=== PATIENT | male | born 1965 | race Caucasian/White ===

== ENCOUNTER 2025-02-08 21:26 | Emergency (ER) | payer OTHER, SELFPAY ==
[2025-02-08 21:26] VITALS: PULSE 89
[2025-02-08 21:33] VITALS: BP 127/71; PULSE 88; PULSE 89; RESP 16; TEMP 36; O2SAT 97
--- NOTE | 2025-02-08 21:47 | ED_ITS ---
HPI - Syncope General Chief Complaint: Syncope Stated Complaint: syncope Time Seen by Provider: 02/08/25 21:46 Source: patient and EMS Mode of arrival: ambulatory Limitations: no limitations History of Present Illness HPI narrative: this is a 59-year-old male with history of MS that presents via EMS after he was playing a round of golf and had a few drinks had a syncopal episode where he felt faint and dehydrated he did not fall to the ground since a friend was there and helped him to the ground otherwise no seizure activity blood pressure was decreased and via EMS the patient receive lactated Ringer's and currently the patient is back to his baseline blood pressure 127/71 no headache no blurry vision no nausea vomiting no chest pain no shortness of breath no fever chills. complaint: loss of consciousness and felt faint Onset (ago): hour(s) -: second(s) Related Data Allergies Allergy/AdvReac Type Severity Reaction Status Date / Time No Known Allergies Allergy Verified 02/08/25 21:54 Review of Systems Review of Systems: All systems reviewed & are unremarkable except as noted in HPI and below PMFSH Past Medical History Medical History Stable multiple sclerosis Exam Const: General: healthy appearing, no acute distress and alert Nutritional Appearance: well nourished Orientation/consciousness: patient oriented x3 Limitations: no limitations HENMT: Head: normal to inspection Eyes: Conjunctivae: conjunctivae normal Pupils: Equal, round and reactive pupils present EOM: EOMs intact bilaterally Neck: Neck: normal visual inspection Chest: Chest palpation & inspection: normal inspection of the chest Resp: Effort & Inspection: normal respiratory effort Auscultation: clear to auscultation bilaterally Cardio: Rate: regular rate Rhythm: regular rhythm GI: GI Palp: Yes Soft to palpation Auscultation: normal bowel sounds : General: Yes bladder normal to palpation Back/Spine/Pelvis: Back: no CVA tenderness Skin: General skin exam: normal color Rashes: no rashes Wounds: no wounds Neuro: General: patient oriented x3, moves all extremities, no meningeal signs, no focal motor deficits and CN's II-XI intact bilaterally Speech: normal speech Gait exam (Neuro): Normal gait present Extrem: General: normal to inspection, no clubbing, cyanosis or edema and no pedal edema Course Course Emergency Course: patient back to his baseline received L of lactated Ringer's and current blood pressure 127/71 patient is afebrile with heart rate of 89 respiratory rate of 16 satting 97% on room air patient wants to go home feels great. Vital Signs Vital signs: Vital Signs Pulse Rate 89 02/08/25 21:26 Temperature 36.0 C L 02/08/25 21:33 Pulse Rate 86 02/08/25 22:16 Respiratory Rate 15 02/08/25 22:16 Blood Pressure 110/90 02/08/25 22:16 Pulse Oximetry 98 02/08/25 22:16 Oxygen Delivery Room Air 02/08/25 21:33 Discharge Plan Discharge Clinical Impression: Dehydration, Vasovagal syncope Patient Disposition: Home Condition: Stable Instructions: Antibiotic Form, Dehydration (ED), Syncope (ED) Additional Instructions: Advised to drink plenty of water and follow with primary care physician if symptoms persist or worsen. Patient Language: Lao Follow-up/Referrals: UNKNOWN,DOCTOR [Non-Staff] - Time of Disposition: :57
[2025-02-08 22:01] VITALS: BP 126/80; PULSE 87; RESP 12; O2SAT 92
--- OUTSIDE RECORDS SUMMARY | 2025-02-08 22:09 | XMS_ITS | Clinical Summary ---
Author Organization [facility] B Address [address] [place] [address] Care Team Providers Care Campaign Director Name Role Phone No, Physician Primary Care Provider [phone] Allergies No known active allergies Medications aspirin 81 mg tablet None Entered 07/03/2015 Active cholecalciferol (VITAMIN D-3) 5,000 unit capsule 1 capsule (5,000 Units total) Active DOCOSAHEXANOIC ACID/EPA (FISH OIL ORAL) Take by mouth. Active tamsulosin (FLOMAX) 0.4 mg extended release capsule Take 1 capsule (0.4 mg total) by mouth daily 07/01/2021 Active Aubagio 14 mg tabletIndication s:Multiple sclerosis (HCC) TAKE 1 TABLET BY MOUTH DAILY 30 tablet 5 08/25/2021 Active modafiniL (PROVIGIL) 200 mg tabletIndication s:Multiple sclerosis (HCC) Take 1 tablet (200 mg total) by mouth daily 90 tablet 1 10/23/2021 Active gabapentin (NEURONTIN) 600 mg tablet TAKE 2 TABLETS(1200 MG) BY MOUTH THREE TIMES DAILY 180 tablet 01/07/2022 Active metoprolol XL (TOPROL-XL) 25 mg extended release tabletIndication s:PVC's (premature ventricular contractions) Take 1 tablet (25 mg total) by mouth daily 90 tablet 3 10/05/2024 Active Active Problems Problem Noted Date Diagnosed Date PVC's (premature ventricular contractions) 08/25 Assessment & Plan (08/25/2021 12:55 PM FOURTH HAND): Asymptomatic, reassured that unless burden is excessive for signs of structural heart disease that no additional is needed. Will assess burden further with four Holter, assess LV function with echo. Further recommendations forthcoming. Vitamin D deficiency 07/09/2015 Multiple sclerosis 07/05/2015 Overview (12/15/2017): MULTIPLE SCLEROSIS DMT history Copaxone 2013 - 07/2016 new lesion Aubagio 07/2016 - Immunizations Immunization Administration Dates Next Due Influenza, Quadrivalent, Spl it, Preservative Free, Intramuscular 07/10/2021,09/04/2020,05/29/2019 Pfizer SARS-CoV-2 Monovalent Vaccination (12+ Yrs) PURPLE 01/03/2021,12/13/2020 Tdap 02/14/2014 ZOSTER Recombinant 08/10/2018,08/09/2018, 018 Surgical History Surgery Date Site/Laterality Comments KNEE ARTHROSCOPY Medical History Medical History Date Comments MS (multiple sclerosis) (HCC) Hx of gout Metabolic syndrome Vitamin D insufficiency Thyroid nodules Family History Medical History Relation Name Comments Alzheimer's disease Maternal Grandmother Dementia Maternal Grandmother Stroke Maternal Grandmother Neuropathy Mother Relation Name Status Comments Maternal Grandmother Mother Social History Tobacco Use Types Packs/Day Years Used Date Smoking Tobacco: Former Vaping Q uit: 09/25/2020 Smokeless Tobacco: Never Alcohol Use Standard Drinks/Week Comments Yes 0 (1 standard drink = 0.6 oz pur e alcohol) Personal Safety Answer Date Recorded Getting School Help Needed Not on file 09/20 Sex and Gender Information Value Date Recorded Sex Assigned at Not on file Legal Sex Male 9:39 AM CDT Gender Identity Not on file Sexual Orientation Not on file Obstetrics History Last Filed Vital Signs Vital Sign Reading Time Taken Comments Blood Pressure 116/72 09/22/2023 8:31 AM FOURTH HAND Pulse 81 09/22/2023 8:31 AM FOURTH HAND Temperature - - Respiratory Rate 16 09/04/2020 10:3 3 AM FOURTH HAND Oxygen Saturation 97% 09/22/2023 8:31 AM FOURTH HAND Inhaled Oxygen Concentration - - Weight 113.8 kg (250 lb 12.8 oz) 09/22/2023 8:31 AM FOURTH HAND Height 188 cm (6' 2) 09/22/2023 8:31 AM FOURTH HAND Body Mass Index 32.2 09/22/2023 8:31 AM FOURTH HAND Plan of Treatment Health Maintenance Due Date Last Done Comments Colon Cancer Screening-Colonoscopy 1964 Depression Screening 1964 Hepatitis C Screening 1964 Prostate Cancer Screening-PSA 1964 Hepatitis B Screening 1982 Regular Well Visit/Exam 18-64 1982 DTaP/Tdap/Td Vaccine (2 - Td or Tdap) 02/15/2024 02/14/2014 Covid-19 Vaccine (3 - 2023-2 5 season) 2024 01/03/2021, 12/13/2020 Influenza Vaccine (Season Ended) 2025 07/10/2021, 09/04/2020, 05/29/2019 Zoster Vaccine Completed 08/10/2018, 08/09/2018, 12/07/2017 Pneumococcal vaccine <65 Aged Out No longer eligible based on patient's age to complete this topic Insurance CHOICE PLUS [facility] CHOICE PLUS [facility] CHOICE PLUS Care Teams Campaign Director Relationship Specialty Start Date End Date No, Physician PCP - General 08/15/18
--- OUTSIDE RECORDS SUMMARY | 2025-02-08 22:09 | XMS_ITS | Clinical Summary ---
Author Organization [facility] Address [address] [place] [address] Care Team Providers Care Educational Resource Center Teacher Name Role Phone Unavailable Primary Care Provider Unavailabl e Allergies No known active allergies Medications omega 4-trv-bxy-fish oil (Fish OiL) 100-160-1,000 mg Capsule Take 2 Tablets by mouth daily. Active aspirin (ECOTRIN EC) 81 mg Tablet, Delayed Release (E.C.) Take 81 mg by mouth daily. Active cholecalciferol, Vitamin D3, 125 mcg (5,000 unit) Capsule Take 5,000 Units by mouth daily. Active [place]-3 Fatty Acids 1,000 mg Capsule Take 2 Capsules by mouth daily. Active naproxen sodium (ALEVE) 220 mg Capsule Take 4 Capsules by mouth daily. Active tamsulosin (FLOMAX) 0.4 mg capsule Take 0.4 mg by mouth daily. 1 Active valACYclovir (VALTREX) 1 gram tablet TAKE 2 TABLETS BY MOUTH THE NIGHT BEFORE PROCEDURE AND IN THE MORNING 2 Active metoprolol succinate (TOPROL XL) 25 mg Extended Release 24 hour tablet Take 25 mg by mouth daily. 3 Active gabapentin (NEURONTIN) 600 mg tabletIndication s:Neuropathy TAKE 2 TABLETS BY MOUTH 3 TIMES DAILY 540 Tablet 3 4 Active modafiniL (PROVIGIL) 200 mg TabletIndication s:Multiple sclerosis (CMS/HCC),Fatigu e, unspecified type Take 1 Tablet (200 mg) by mouth daily. 90 Tablet 5 Active teriflunomide (AUBAGIO) 14 mg tabletIndication s:Multiple sclerosis (CMS/HCC) Take 1 Tablet (14 mg) by mouth daily. 30 Tablet 5 5 Active teriflunomide (AUBAGIO) 14 mg tabletIndication s:Multiple sclerosis (CMS/HCC) Take 1 Tablet (14 mg) by mouth daily. 30 Tablet 5 5 Active Active Problems Patient Care Coordination No te Formatting of this note migh t be different from the original. DMT history Copaxone 2013 - 07/2016 new lesion Aubagio 07/2016 - Problem Noted Date Diagnosed Date Multiple sclerosis, relapsing-remitting 12/10/19 24 PVC's (premature ventricular contractions) 08/25 Overview (12/10/2023): Last Assessment & Plan: Asymptomatic, reassured that unless burden is excessive for signs of structural heart disease that no additional is needed. Will assess burden further with four Holter, assess LV function with echo. Further recommendations forthcoming. Mixed hyperlipidemia 06/03/2017 Overview (12/10/2023): Last Assessment & Plan: Currently on no cholesterol lowering medication. Recheck lipid panel, hepatic function, and CK. Sun-damaged skin 12/01/2016 Chronic nonalcoholic liver disease 04/21/2016 Gout 04/21/2016 Overview (12/10/2023): Last Assessment & Plan: Pt. Has not taken allopurinol in the past 3 months. Has not had flare in several years. Check uric acid level. Neuropathy 04/21/2016 Overview (12/10/2023): Last Assessment & Plan: Continue gabapentin 300 mg TID. Obesity, Class I, BMI 30-34.9 04/21/2016 Overview (12/10/2023): Last Assessment & Plan: Pt. Lost 10 lbs. In past 6 months. Exercise counseling given. Dietary surveillance and counseling given. Prediabetes 04/21/2016 Overview (12/10/2023): 5.9 on 11/30/16; 6.2 on 06/03/17 Last Assessment & Plan: A1C increased to 6.2. Restart Metformin XR 500 mg daily. Emphasized dietary changes. Primary osteoarthritis of both knees 04/21/2016 Thyroid nodule 04/21/2016 Overview (12/10/2023): Last Assessment & Plan: S/p normal FNA performed by Dr. Arambula. Metabolic syndrome 07/09/2015 Overview (12/10/2023): Date HEMOGLOBIN A1C 06/24/2011 6.8 percent 11/13/2011 6.1 percent 07/15/2012 6.0 percent 03/31/2013 5.1 % 02/14/2014 5.5 percent Results for orders placed or performed in visit on 07/09/15 HEMOGLOBIN A1C Result Value Ref Range GLYCO HEMOGLOBIN 5.7 (H) 4.0-5.6 % LIPID RISK PANEL Result Value Ref Range CHOLESTEROL 191 mg/dL TRIGLYCERIDES 99 mg/dL HDL CHOLESTEROL 42 mg/dL LDL CHOL (CALC) 129 mg/dL Non- HDL Cholesterol 149 mg/dL VITAMIN D 25-HYDROXY (CALCIFEROL) Result Value Ref Range VITAMIN D 25 HYDROXY 39.5 30.0-100.0 ng/mL CBC W/PLATELET Result Value Ref Range WHITE CELL COUNT 5.3 3.5-10.5 K/UL RED CELL COUNT 4.42 4.30-5.80 M/UL HEMOGLOBIN 14.0 13.0-17.5 g/dL HEMATOCRIT 40.1 38.0-50.0 % MCV 91 80-99 FL MCH 31.7 27.0-34.0 pg MCHC 34.9 32.0-35.5 % RDW 12.8 11.0-15.0 % PLATELET COUNT 282 140-390 K/UL COMPREHENSIVE CHEM PANEL Result Value Ref Range SODIUM 139 134-142 mEq/L POTASSIUM 4.0 3.5-5.1 mEq/L CHLORIDE 105 98-109 mEq/L BICARBONATE 29 21-31 mEq/L CALCIUM 9.4 8.3-10.5 mg/dL ALBUMIN 4.2 3.5-5.7 g/dL BLOOD UREA NITROGEN 12 2-25 mg/dL CREATININE 0.94 0.60-1.30 mg/dL GLUCOSE 103 (H) 65-100 mg/dL PROTEIN TOTAL 6.7 6.4-8.9 g/dL ALT (SGPT) 16 0-52 Unit/L ALKALINE PHOSPHATASE 57 34-104 Unit/L AST (SGOT) 16 0-39 Unit/L BILIRUBIN TOTAL 0.8 0.0-1.0 mg/dL GFR( Est) >60 >=60 mL/min/1.73m2 GFR(non- Amer Est) >60 >=60 mL/min/1.73m2 VITAMIN B12 LEVEL (LAB) Result Value Ref Range VITAMIN B12 212 180-933 pg/mL TSH Result Value Ref Range TSH 3RD GENERATION 0.43 0.40-4.00 uIU/ML Last Assessment & Plan: Metabolic syndrome - Assessment & Plan Note by Deepak Sierra MD at 07/09/2015 10:57 AM Author: Deepak Sierra MD Service: (none) Author Type: Physician Filed: 07/10/2015 11:54 PM Note Time: 07/09/2015 10:57 AM Status: Edited Account Specialist: Deepak Sierra MD (Physician) Related Notes: Original Note by Deepak Sierra MD (Physician) filed at 07/09/2015 10:57 AM Discuss the USDA food plate at length and the need for continued healthy eating, portion control, avoid fried or rich foods, more exercise, and keep his weight down Check all labs, including Vit B12 which can cause neuropathy and be low from Metformin, Nontoxic multinodular goiter 07/09/2015 Overview (12/10/2023): Last Assessment & Plan: Nontoxic multinodular goiter - Assessment & Plan Note by Deepak Sierra MD at 07/09/2015 10:59 AM Author: Deepak Sierra MD Service: (none) Author Type: Physician Filed: 07/10/2015 11:53 PM Note Time: 07/09/2015 10:59 AM Status: Edited Account Specialist: Deepak Sierra MD (Physician) Related Notes: Original Note by Deepak Sierra MD (Physician) filed at 07/09/2015 10:59 AM Discuss the incidence and evaluation of thyroid nodules I reviewed thyroid physiology and its role in maintaining normal metabolic function. I outlined signs and symptoms of thyroid imbalance. In a few months after the move I gave him a paper order slip to do thyroid u/s at a larger hospital in [place] . I suggested that any nodule > 1 cm will need to be later biopsied Vitamin D deficiency 07/09/2015 Disturbance of skin sensation 07/05/2015 Chondromalacia of patella 10/05/2006 Derangement of medial meniscus 10/05/2006 Encounters Date Type Department Care Team Description 01/23/2025 External Device Data [facility] ABSTRACTION Provider, Abstract 01/17/2025 External Device Data [facility] ABSTRACTION Provider, Abstract 01/16/2025 External Device Data [facility] ABSTRACTION Provider, Abstract 12/12/2024 External Device Data [facility] ABSTRACTION Provider, Abstract 11/29/2024 Refill [facility] [address] [place] [address] Cristiano Roa MD Multiple sclerosis ([facility]) 11/29/2024 Refill [facility] Neu[facility] [address] [place] [address] Cristiano Roa MD Multiple sclerosis ([facility]) 11/27/[address] [facility] Neurology [address] [place] [address] Cristiano Roa MD Medication Refill 11/15/2024 5:00 PM CDT - 11/15/2024 11:59 PM CDT Hospital Encounter [facility] [address] [place] [address] Cristiano Roa MD [place], Joshua, Physical Therapist Discharge Disposition: Home or Self Care 11/15/2024 External Device Data [facility] ABSTRACTION Provider, Abstract 11/08/2024 External Device Data [facility] ABSTRACTION Provider, Abstract from Last 3 Months Family History Medical History Relation Name Comments Cancer Brother BTB Heart Disease Father KLB Stroke Father KLB Alzheimer's Disease Maternal Grandmother Roxana Relation Name Status Comments Brother BTB Father KLB Maternal Grandmother Roxana Social History Tobacco Use Types Packs/Day Years Used Date Smoking Tobacco: Former Cigarettes 0.3 10 0 09/05/2010 - 09/05/2020 Alcohol Use Standard Drinks/Week Comments Yes 3 (1 standard drink = 0.6 oz pur e alcohol) Feeling Safe Answer Date Recorded Are you in a relationship wi th someone who hurts you emotionally and/or physically? No 11/15/2024 Sex and Gender Information Value Date Recorded Sex Assigned at Not on file Legal Sex Male 2:57 PM CDT Gender Identity Not on file Sexual Orientation Not on file Last Filed Vital Signs Vital Sign Reading Time Taken Comments Blood Pressure 134/78 09/05/2024 12:46 PM TORCH SHEARER Pulse 61 09/05/2024 12:46 PM TORCH SHEARER Temperature - - Respiratory Rate - - Oxygen Saturation 99% 02/02/2024 2:38 PM CDT Inhaled Oxygen Concentration - - Weight 113.4 kg (250 lb) 09/28/2024 7:16 AM TORCH SHEARER Height - - Body Mass Index - - Plan of Treatment Upcoming Encounters Date Type Department Care Team (Late st Contact Info) Description 03/07/2025 3:30 PM CDT Office Visit [facility] Neurology [address] [place] [address] Cristiano Roa MD [address] [place] [address] Health Maintenance Due Date Last Done Comments COLORECTAL SCREENING 2009 Colorectal Cancer Screening 2009 FIT-DNA Q 3 years 2009 FIT/FOBT Q 1 year 2009 Flex Sig/CT Colonography Q 5 years 2009 DTAP/TDAP/TD VACCINES (2 - T d or Tdap) 02/15/2024 02/14/2014 INFLUENZA VACCINE (#1) 2024 , 09/04/2020, 05/29/2019 COVID-19 Vaccine ( season) 04/30/202402/2021, 12/13/2020 HEPATITIS B VACCINES (1 of 3 - Risk 3-dose series) 2024 RSV VACCINE (60+ or ) (1 - Risk 60-74 years 1-dose series) 2024 ZOSTER VACCINE Completed 08/10/2018, 07/30, 12/07/2017 Insurance [email or web address] [id number]
--- OUTSIDE RECORDS SUMMARY | 2025-02-08 22:09 | XMS_ITS | Encounter Summary ---
Author Organization [facility] Address [address] [place] [address] Care Team Providers Care Trouble Shooting Mechanic Name Role Phone Unavailable Primary Care Provider Unavailabl e Encounter Details Date Type Department Care Team (Late Contact Info) Description 04/14/2023 Abstract [facility] - [facility] [address] [place] [address] Cristiano Roa MD [address] [place] [address] Social History Tobacco Use Types Packs/Day Years Used Date Smoking Tobacco: Former Cigarettes 0.3 10 0 09/05/2010 - 09/05/2020 Alcohol Use Standard Drinks/Week Comments Yes 3 (1 standard drink = 0.6 oz pur e alcohol) Sex and Gender Information Value Date Recorded Sex Assigned at Not on file Legal Sex Male 2:57 PM CDT Gender Identity Not on file Sexual Orientation Not on file documented as of this encounter Plan of Treatment Upcoming Encounters Date Type Department Care Team (Late st Contact Info) Description 03/07/2025 3:30 PM CDT Office Visit [facility] [address] [place] [address] Cristiano Roa MD [address] [place] [address] documented as of this encounter Visit Diagnoses Not on filedocumented in this encounter
--- OUTSIDE RECORDS SUMMARY | 2025-02-08 22:09 | XMS_ITS | Referral Summary ---
Author Organization [facility] Address [address] [place] [address] Care Team Providers Care Service Center Assistant Name Role Phone No, Physician Primary Care Provider [phone] Allergies No known active allergies Medications aspirin [...] 08/25 Assessment & Plan (08/25/2021 12:55 PM COIL MAKER): Asymptomatic, reassured that unless burden is excessive [...] 01/03/2021,12/13/2020 Tdap 02/14/2014 ZOSTER Recombinant 08/10/2018,08/09/2018, 018 Social History Tobacco Use Types Packs/Day Years [...] Comments Blood Pressure 116/72 09/22/2023 8:31 AM COIL MAKER Pulse 81 09/22/2023 8:31 AM COIL MAKER Temperature - - Respiratory Rate 16 09/04/2020 10:3 3 AM COIL MAKER Oxygen Saturation 97% 09/22/2023 8:31 AM COIL MAKER Inhaled Oxygen Concentration - - Weight 113.8 kg (250 lb 12.8 oz) 09/22/2023 8:31 AM COIL MAKER Height 188 cm (6' 2) 09/22/2023 8:31 AM COIL MAKER Body Mass Index 32.2 09/22/2023 8:31 AM COIL MAKER Plan of Treatment Not on file Insurance [facility] CHOICE PLUS CHOICE PLUS CHOICE PLUS Care Teams Service Center Assistant Relationship Specialty Start Date End Date No, Physician PCP - General 08/15/18
[2025-02-08 22:16] VITALS: BP 110/90; PULSE 86; RESP 15; O2SAT 98
[2025-02-08] MEDS: LACTATED RINGERS 1,000 ML 999 ML IV CONT (22:24)
== END 2025-02-08 22:50 | disposition home or self-care (01) ==
PROVIDERS: Emergency Provider Emergency Medicine; PCP Family Medicine
DX: E86.0 Dehydration (principal); R55 Syncope and collapse
CPT/HCPCS: 99284; J7120